=== PATIENT | male | born 1990 | race African-American/Black ===

== ENCOUNTER 2021-11-13 20:52 | Inpatient (IN) ==
[2021-11-13] MEDS ORDERED: SODIUM CHLORIDE 0.9% 500 ML IV STA (21:20)
[2021-11-13] MEDS ORDERED: KETOROLAC 30 MG/1 ML VIAL IV STA (21:36)
[2021-11-13 21:46] LABS: Basophils % 0.5 % (0.0-0.8); Eosinophils # 0.1 10*3/uL (0.0-0.87); Eosinophils % 1.2 % (0.00-10.9); Hemoglobin 13.4 GM/DL (14.0-18.0); Immature Granulocytes % 0.7 %; Immature Granulocytes Absolute 0.05 #; Lymphocytes # 1.6 10*3/uL (1.4-4.0); Lymphocytes % 21.8 % (21.2-54.2); Mean Corpuscular HGB Conc 31.9 GM/DL (32-36); Mean Corpuscular Volume 97.2 FL (87-102); Mean Platelet Volume 9.4 FL (9.6-12.0); Monocytes % 12.5 % (1.7-12.7); Neutrophils % 63.3 % (38.7-73.9); Platelet Count 276 T/CUMM (130-400); Red Blood Count 4.32 MC/CUMM (3.8-5.5); White Blood Count 7.3 T/CUMM (4-12)
[2021-11-13 22:05] LABS: Alanine Aminotransferase 30 U/L (16-61); Alkaline Phosphatase 48 U/L (45-117); Amylase 127 U/L (25-115); Aspartate Amino Transferase 14 U/L (0-37); Bilirubin,Total < 0.39 MG/DL (0.20-1.00); Blood Urea Nitrogen 14 MG/DL (7-18); Calcium 8.9 MG/DL (8.5-10.1); Carbon Dioxide 27 MMOL/L (21-32); Estimated Glom Filtration Rate 81 ML/MIN; Glucose 96 MG/DL (74-106); Osmolality,Calculated 290.6 MOS/KG (273-304); Potassium 4.1 MMOL/L (3.5-5.1); Sodium 146 MMOL/L (136-145); Total Protein 6.3 G/DL (6.4-8.2)
[2021-11-14] MEDS ORDERED: methylPREDNISolone SOD SUC 125 MG/2 ML VIAL IV STA (01:03)
[2021-11-14] MEDS ORDERED: SODIUM CHLORIDE 0.9% 1,000 ML IV STA (01:09)
[2021-11-14] MEDS ORDERED: HYDROmorphone 1 MG/1 ML SYRINGE IV STA (01:10)
[2021-11-14] MEDS ORDERED: GLUCAGON 1 MG VIAL IM PRN (01:35)
[2021-11-14] MEDS ORDERED: ONDANSETRON 4 MG/2 ML VIAL IV PRN (01:35)
[2021-11-14] MEDS ORDERED: DEXTROSE 10% 250 ML BAG IV PRN (01:35)
[2021-11-14] MEDS: HYDROmorphone 1 MG/1 ML SYRINGE IV PRN ×5 (04:18→20:56)
[2021-11-14 06:16] LABS: Basophils % 0.3 % (0.0-0.8); Eosinophils % 0.2 % (0.00-10.9); Immature Granulocytes % 0.7 %; Immature Granulocytes Absolute 0.07 #; Lymphocytes # 0.7 10*3/uL (1.4-4.0); Lymphocytes % 6.8 % (21.2-54.2); Mean Corpuscular Volume 102.2 FL (87-102); Mean Platelet Volume 12.2 FL (9.6-12.0); Monocytes % 2.7 % (1.7-12.7); Neutrophils % 89.3 % (38.7-73.9); Red Blood Count 4.11 MC/CUMM (3.8-5.5)
[2021-11-14 06:26] LABS: Platelet Count 155 T/CUMM (130-400); White Blood Count 9.7 T/CUMM (4-12)
[2021-11-14 06:29] LABS: Calcium 8.3 MG/DL (8.5-10.1); Osmolality,Calculated 268.2 MOS/KG (273-304); Potassium 4.9 MMOL/L (3.5-5.1)
[2021-11-14] MEDS: metroNIDAZOLE INJ 500 MG/100 ML PREMIX IV SCH ×3 (07:14→23:04)
[2021-11-14] MEDS: NICOTINE 21 MG/24 HR PATCH TRANSDERM SCH (09:01)
[2021-11-14] MEDS: cefTRIAXone 1,000 MG in SODIUM CHLORIDE 0.9% 100 ML IV SCH (09:02)
[2021-11-14] MEDS: PANTOPRAZOLE 40 MG TABLET PO SCH (09:04)
[2021-11-14] MEDS: methylPREDNISolone SOD SUC 125 MG/2 ML VIAL IV SCH ×2 (09:07→20:53)
[2021-11-14] MEDS ORDERED: BISACODYL 5 MG TABLET PO ONE (12:00)
[2021-11-14] MEDS: LACTATED RINGERS 1,000 ML IV SCH ×2 (12:25→23:08)
[2021-11-14] MEDS ORDERED: POLYETHYLENE GLYCOL POWDER 255 GM BOTTLE PO ONE (18:00)
[2021-11-14] MEDS: busPIRone 10 MG TABLET PO SCH (20:53)
[2021-11-14] MEDS: GABAPENTIN 300 MG CAPSULE PO SCH (20:53)
[2021-11-14] MEDS ORDERED: QUEtiapine 100 MG TABLET PO SCH (21:00)
[2021-11-14] MEDS ORDERED: traZODone 50 MG TABLET PO SCH (21:00)
[2021-11-15] MEDS: HYDROmorphone 1 MG/1 ML SYRINGE IV PRN (02:36)
[2021-11-15] MEDS ORDERED: POLYETHYLENE GLYCOL POWDER 255 GM BOTTLE PO ONE (05:00)
[2021-11-15] MEDS ORDERED: HYDROmorphone 1 MG/1 ML SYRINGE IV PRN (06:16)
[2021-11-15] MEDS ORDERED: HYDROmorphone PCA 30 MG/30 ML SYRINGE IV SCH (06:30)
[2021-11-15] MEDS: busPIRone 10 MG TABLET PO SCH (09:08)
[2021-11-15] MEDS: GABAPENTIN 300 MG CAPSULE PO SCH (09:08)
[2021-11-15] MEDS: PANTOPRAZOLE 40 MG TABLET PO SCH (09:08)
[2021-11-15] MEDS: metroNIDAZOLE INJ 500 MG/100 ML PREMIX IV SCH (09:08)
[2021-11-15] MEDS: methylPREDNISolone SOD SUC 125 MG/2 ML VIAL IV SCH (09:08)
[2021-11-15] MEDS: NICOTINE 21 MG/24 HR PATCH TRANSDERM SCH (09:18)
[2021-11-15] MEDS: cefTRIAXone 1,000 MG in SODIUM CHLORIDE 0.9% 100 ML IV SCH (09:18)
[2021-11-15 11:48] VITALS: BP 148/77
[2021-11-16] MEDS ORDERED: HYDROmorphone PCA 30 MG/30 ML SYRINGE IV SCH (06:30)
== END 2021-11-15 15:15 | disposition home or self-care (01) | DRG 387 ==
LOC: N.ED 20:52 → N.5E 11-14 01:35
PROVIDERS: ADMIT Internal Medicine; ATTEND Internal Medicine